=== PATIENT | female | born 1990 ===

== ENCOUNTER → 2018-12-17 | Outpatient (REF) | payer OTHER, SELFPAY | LOC: M LAB REF 16:40 | PROVIDERS: ATTEND Nurse Practitioner Women's Health | DX: O36.0120 Maternal care for anti-D [Rh] antibodies, second trimester, not applicable or unspecified (principal) | CPT/HCPCS: 86850; 86901; J2790 ==

== ENCOUNTER → 2019-02-25 | Outpatient (REF) | payer OTHER | LOC: M LAB REF 11:45 | PROVIDERS: ATTEND Nurse Practitioner Women's Health | DX: Z36.85 Encounter for antenatal screening for Streptococcus B (principal) ==